=== PATIENT | female | born 1995 | race Two or more races ===

== ENCOUNTER 2016-09-26 00:04 | Emergency (ER) | payer MEDICAID, OTHER ==
--- NOTE | 2016-09-26 00:20 | ED ---
Psychiatric Complaint - HPI Summary HPI Summary: The patient is a 20 year old female presenting with EMS with police escort 9.41 for self reported suidical ideation with plan to overdose on Atarax. Admits to struggling with depression since fall 2015. Admits to associated depressed mood, social withdrawal, increased sleep, decreased energy , and poor performance at school. Is under care of [facility] counseling and psychiatrist. Was prescribed Wellbutrin which she electively discontinued over winter break. Is also prescribed Atarax for anxiety. No access to guns. Additional complaint of migraine headache without taking OTC analgesic. History of migraine headache. FH of mother with migraine and father with HTN, HLP. LMP unknown as on Nexplanon. Denies recent sexual activity. SH: Student at [employer]. Occasional alcohol use. Denies smoking or IVDU. Lives in [place] with family. - History Of Current Complaint Time Seen by Provider: 09/26/16 00:12 - Allergies/Home Medications Allergies/Adverse Reactions: Allergies Allergy/AdvReac Type Severity Reaction Status Date / Time No Known Allergies Allergy Verified 10/13/15 04:34 PMH/Surg Hx/FS Hx/Imm Hx - Social History Alcohol Use: Occasionally Substance Use Type: Reports: None Smoking Status (MU): Never Smoked Tobacco Review of Systems Constitutional: Negative Eyes: Negative ENT: Negative Cardiovascular: Negative Respiratory: Negative Gastrointestinal: Negative Genitourinary: Negative Musculoskeletal: Negative Skin: Negative Positive: Headache Positive: Depressed All Other Systems Reviewed And Are Negative: Yes Physical Exam Triage Information Reviewed: Yes Vital Signs Reviewed: Yes Appearance: Positive: Well-Appearing, No Pain Distress, Well-Nourished Skin: Positive: Warm, Skin Color Reflects Adequate Perfusion, Dry Head/Face: Positive: Normal Head/Face Inspection Eyes: Positive: Normal, EOMI, EARNEST, Conjunctiva Clear ENT: Positive: Normal ENT inspection, Hearing grossly normal, Pharynx normal. Negative: Pharyngeal erythema, Nasal congestion, Nasal drainage, Tonsillar swelling, Tonsillar exudate Neck: Positive: Supple, Nontender, No Lymphadenopathy Respiratory/Lung Sounds: Positive: Clear to Auscultation, Breath Sounds Present. Negative: Decreased Breath Sounds, Rales, Rhonchi, Wheezes Cardiovascular: Positive: Normal - radial pulse 2+, RRR, S1, S2. Negative: Murmur, Rub, Tachycardia Abdomen Description: Positive: Nontender, No Organomegaly, Soft. Negative: CVA Tenderness (R), CVA Tenderness (L), Distended, Guarding, Peritoneal Signs Bowel Sounds: Positive: Present Musculoskeletal: Positive: Normal - AROM in all extremities Neurological: Positive: Normal, Normal Gait, Facial Symmetry, Speech Normal Psychiatric: Positive: Depressed - depression mood, cooperative, logical thought process, good insight, memory intact, fair judgment, no hallunations, positive SI, no gesture. Negative: Patient Uncooperative for Exam AVPU Assessment: Alert Diagnostics - Laboratory Result Diagrams: 09/26/16 00:35 09/26/16 00:35 Lab Statement: Any lab studies that have been ordered have been reviewed, and results considered in the medical decision making process. Course/Dx - Differential Dx/Clinical Impression Provider Diagnosis: Suicidal ideation, Depression - Physician Notifications Discussed Care Of Patient With: Discussed with director of psychology reported worsening depression with acute suicidal ideation. Advised of my impression the patient will require admission and would be unsafe for discharge. 0200: Patient to be signed out to Dr. Thorpe pending disposition. Discharge - Discharge Plan Condition: Stable Disposition: OTHER Discharge Disposition Comment: 0200: Patient to be signed out to Dr. Thorpe pending disposition.
[2016-09-26] MEDS ORDERED: Ibuprofen TAB* 600 MG PO ONE (00:42)
[2016-09-26 01:00] LABS: Hematocrit 38 % (35-47); Hemoglobin 12.8 g/dl (12.0-16.0); Mean Corpuscular HGB Conc 34 g/dl (31-36); Mean Corpuscular Hemoglobin 28 pg (27-31); Mean Corpuscular Volume 85 fL (80-97); Mean Platelet Volume 9 um3 (7.4-10.4); Red Blood Count 4.51 10^6/ul (4.0-5.4); Red Cell Distribution Width 13 % (10.5-15)
[2016-09-26 01:02] LABS: Urine Bacteria Absent (Absent); Urine Bilirubin Negative (Negative); Urine Glucose Negative (Negative); Urine Nitrite Negative (Negative)
[2016-09-26 01:10] LABS: ALT 17 U/L (7-52); AST 18 U/L (13-39); Albumin 4.3 g/dL (3.2-5.2); Alkaline Phosphatase 64 U/L (34-104); Anion Gap 8 mmol/L (2-11); BUN/Creatinine Ratio 15.7 (8-20); Blood Urea Nitrogen 13 mg/dL (6-24); CO2 Carbon Dioxide 24 mmol/L (22-32); Calcium 9.6 mg/dL (8.6-10.3); Chloride 105 mmol/L (101-111); EGFR African American 113.9 (>60); EGFR Non-African American 88.6 (>60); Globulin 3.5 g/dL (2-4); Glucose 99 mg/dL (70-100); Potassium 3.6 mmol/L (3.5-5.0); Sodium 137 mmol/L (133-145); Total Protein 7.8 g/dL (6.4-8.9)
[2016-09-26 01:17] LABS: Acetaminophen < 15 mcg/mL; Alcohol < 10 mg/dL (<10); Salicylate < 2.50 mg/dL (<30)
[2016-09-26 01:22] LABS: Benzodiazepine Urine Screen None Detected (None Detect)
[2016-09-26 01:26] LABS: TSH (Thyroid Stimulating Horm) 1.42 mcIU/mL (0.34-5.60)
--- NOTE | 2016-09-26 06:46 | ED ---
I, Alon Cat, scribed for Reed Thorpe on 09/26/16 at 0613 . Progress - Progress Note Progress Note: Marco Antonio Ku is a 20 yo female presenting to [facility] with acute SI. - Consult/PCP Time Called: 00:33 Course/Dx - Course Course Of Treatment: Marco Antonio Ku is a 20 yo female presenting to [facility] with acute SI. She will be signed out to Dr. Dinh pending [facility], with a recommendation to admit her for observation and Tx. - Diagnoses Provider Diagnoses: Suicidal ideation, Depression - Provider Notifications Discussed Care Of Patient With: Discussed with social psychologist reported worsening depression with acute suicidal ideation. Advised of my impression the patient will require admission and would be unsafe for discharge. 0200: Patient to be signed out to Dr. Thorpe pending disposition. 0700: Pt signed out to Dr. Dinh pending MHE The documentation as recorded by the loki zhou Timothy accurately reflects the service I personally performed and the decisions made by , Reed Thorpe.
[2016-09-26 11:37] VITALS: BP 123/62
--- NOTE | 2016-09-30 08:13 | PN ---
Progress Note - Progress Note Note: Patient urine culture grew corynbacterium >100,000 and normal maría so could be containment. Left voicemail to call us back if having symptoms and will send script to pharmacy of choice as has no pharmacy on file.
== END 2016-09-26 13:44 | disposition home or self-care (01) ==
LOC: ED 00:04
DX: R45.851 Suicidal ideations (principal); F32.9 Major depressive disorder, single episode, unspecified; R51 Headache
CPT/HCPCS: 36415; 80053; 80307; 80320; 80329; 81003; 81015; 84443; 84702; 85025; 87086; 99282; G0480